=== PATIENT | female | born 1930 | race Caucasian/White ===

== ENCOUNTER 2018-09-19 13:14 | Emergency (ER) | payer MEDICARE, BC ==
[2018-09-19 13:30] VITALS: BP 188/61
--- NOTE | 2018-09-19 14:00 | EDM.PDOC ---
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 She presents the ED for further evaluation for increased falling. Patient uses a walker on a intermittent basis to ambulate. With walking in her residence without a walker she will lose balance and fall backwards. She has fallen backwards 3 times since April after having the cervical fusion. There is no symptoms prior to onset of the fall. Her legs do not give out. She has no chest pain, shortness of breath, vision changes, headache, weakness discrepancy as to the upper and lower extremities, difficult swallowing, or any complaints during this time. Today she fell and has pain along the midline of the cervical neck. Mild in nature with no radiation. Per patient she denies any complaints of strokelike symptoms. She also has some mild pain along the posterior aspect of her head secondary to fall. There was no LOC. Again there is no symptoms prior to the fall. She does not state the fall was precipitated by standing from a seated or laying position. She has no symptoms with falling. She is on no blood thinners. Head Pain Score (Numeric/FACES): 5 - Related Data Allergies Allergy/AdvReac Type Severity Reaction Status Date / Time codeine Allergy Cannot Verified 09/19/18 13:22 Remember Egg Derived Allergy Cannot Verified 09/19/18 13:22 Remember Sulfa (Sulfonamide Allergy Cannot Verified 09/19/18 13:22 Antibiotics) Remember Home Meds: Home Meds Moxifloxacin [Vigamox 0.5% Ophth Soln] 1 drop OP DAILY 10/09/13 [History] Sertraline [Zoloft] 50 mg PO DAILY 10/09/13 [History] Travoprost [Travatan Z 0.004% Ophth Soln] 1 drop EYEBOTH BEDTIME 10/09/13 [ History] Lisinopril 20 mg PO BID 10/10/13 [History] Omeprazole [Prilosec] 20 mg PO DAILY 10/10/13 [History] Bisacodyl [Bisac-Evac] 1 supp RECTAL 2000 PRN 03/02/16 [History] Brimonidine/Timolol [Combigan 0.2%/0.5% Ophth Soln] 1 drop EYEBOTH BID 03/02/16 [History] Polyethylene Glycol 3350 [MiraLAX] 17 gm PO ASDIRECTED 03/02/16 [History] Polyvinyl Alcohol [Artificial Tears] 1 drop EYEBOTH QID 03/02/16 [History] Sennosides/Docusate Sodium [Senna-S Tablet] 1 each PO DAILY PRN 03/02/16 [ History] Vit C/E/Zn/Coppr/Lutein/Zeaxan [Preservision Areds 2 Softgel] 1 cap PO DAILY [History] Aspirin 81 mg PO DAILY 09/19/18 [History] Furosemide [Lasix] 20 mg PO DAILY 09/19/18 [History] Levothyroxine 25 mcg PO DAILY 09/19/18 [History] Past Medical History HEENT History: Reports: Cataract, Glaucoma, Other (See Below) Other HEENT History: keratoenus, complete blindness lt. eye, wear glasses Cardiovascular History: Reports: Hypertension, Other (See Below) Other Cardiovascular History: bradycardia, peripheral edema Respiratory History: Reports: None Gastrointestinal History: Reports: Chronic Constipation, Colon Polyp, GERD, Hemorrhoids, Other (See Below) Other Gastrointestinal History: abdominal pain Genitourinary History: Reports: None Musculoskeletal History: Reports: Back Pain, Chronic, Osteoarthritis, Other ( See Below) Other Musculoskeletal History: spinal stenosis, hip pain, cervical disk herniation Neurological History: Reports: Other (See Below) Other Neuro History: syncope Psychiatric History: Reports: Anxiety, Depression, Other (See Below) Other Psychiatric History: insomnia Endocrine/Metabolic History: Reports: None - Past Surgical History HEENT Surgical History: Reports: Cataract Surgery, Tonsillectomy, Other (See Below) Female Surgical History: Reports: Hysterectomy Other Female Surgeries/Procedures: bladder surgery, rectocele repair Musculoskeletal Surgical History: Reports: Other (See Below) Social & Family History - Tobacco Use Smoking Status *Q: Never Smoker Second Hand Smoke Exposure: No - Caffeine Use Caffeine Use: Reports: Coffee - Recreational Drug Use Recreational Drug Use: No ED ROS GENERAL - Review of Systems Review Of Systems: ROS reveals no pertinent complaints other than HPI. ED EXAM, UPPER BACK/NECK PAIN - Physical Exam Exam: See Below Exam Limited By: No Limitations General Appearance: Alert, WD/WN, No Apparent Distress Eye Exam: Bilateral Eye: EOMI, Nystagmus (No noted), PERRL, Vision Changes ( Chronic vision loss no new changes.) Ears Exam: Normal External Exam, Normal Canal, Hearing Grossly Normal, Normal TMs Nose Exam: Normal Inspection, Normal Mucousa, No Blood Throat/Mouth Exam: Normal Inspection, Normal Oropharynx, Normal Voice, No Airway Compromise Head Exam: Normocephalic, Scalp Tenderness (Posterior). No: Scalp Lacerations, Scalp Swelling, Scalp Abrasions, Scalp Ecchymosis, Scalp Hematoma, Facial Abrasions, Facial Ecchymosis, Facial Lacerations, Facial Swelling, Facial Tenderness, Sinus Tenderness Neck Exam: Normal Alignment, Limited Range of Motion (Secondary to history of cervical spine fusion. Chronic unchanged.), Tenderness (Midline cervical neck pain along C6 and C7.), Tender Midline. No: Paraspinous Muscle Tender, Tender Lateral Nexus Criteria: Posterior, Midline Cervical Tenderness. No: Evidence of Intoxication, Altered Level of Consciousness, Focal Neurological Deficit, Painful Distraction Injuries Cardiovascular/Respiratory: Regular Rate, Rhythm, No M/R/G, Normal Peripheral Pulses, No JVD, Normal Breath Sounds, No Respiratory Distress GI/Abdominal: Normal Bowel Sounds, Soft, Non-Tender, No Organomegaly, No Distention Back Exam: Normal Inspection, Full Range of Motion. No: Paraspinal Tenderness, Vertebral Tenderness Extremities: Normal Inspection, Normal Range of Motion, Non-Tender, No Pedal Edema Neurologic: splunk consultant II-XII nml As Tested, No Motor/Sensory Deficits, Alert, Normal Mood/Affect, Oriented x 3, Other (No facial droop, slurred speech, tongue deviation, weakness discrepancy is to the upper and lower extremities. Finger to nose and rapid alternating movements are intact.) Psychiatric: Normal Affect, Normal Mood Skin Exam: Normal Color, Warm/Dry Course - Vital Signs Last Recorded V/S: Last Vital Signs Temp 97.8 F 09/19/18 13:23 Pulse 62 09/19/18 13:23 Resp 20 09/19/18 13:23 BP 188/61 H 09/19/18 13:23 Pulse Ox 100 09/19/18 13:23 Orthostatic Blood Pressure [ 160/66 Standing] Orthostatic Blood Pressure [ 160/58 Sitting] Orthostatic Blood Pressure [ 160/57 Supine] - Orders/Labs/Meds Orders: Active Orders 24 hr Category Date Time Status EKG Documentation Completion [RC] STAT Care 09/19/18 13:53 Active Orthostatic Vital Signs [RC] ASDIRECTED Care 09/19/18 13:55 Active Labs: Laboratory Tests 09/19/18 09/19/18 09/19/18 Range/Units 14:20 14:20 14:20 WBC 8.93 (3.98-10.04) K/mm3 RBC 3.97 L (3.98-5.22) M/mm3 Hgb 12.6 (11.2-15.7) gm/L Hct 37.1 (34.1-44.9) % MCV 93.5 (79.4-94.8) fl MCH 31.7 (25.6-32.2) pg MCHC 34.0 (32.2-35.5) g/dl RDW Std Deviation 47.5 H (36.4-46.3) fL Plt Count 219 (182-369) K/mm3 MPV 10.7 (9.4-12.3) fl Neutrophils % (Manual) 62 H (40-60) % Band Neutrophils % 2 (0-10) % Lymphocytes % (Manual) 32 (20-40) % Atypical Lymphs % 0 % Monocytes % (Manual) 2 (2-10) % Eosinophils % (Manual) 1 (0.7-5.8) % Basophils % (Manual) 1 (0.1-1.2) Platelet Estimate Adequate RBC Morph Comment Normal PT 10.3 (9.5-12.1) SECONDS INR 0.94 APTT 26 (24-31) SECONDS Sodium 140 (136-145) mEq/L Potassium 4.9 (3.5-5.1) mEq/L Chloride 106 (98-107) mEq/L Carbon Dioxide 27 (21-32) mEq/L Anion Gap 11.9 (5-15) BUN 32 H (7-18) mg/dL Creatinine 1.3 H (0.55-1.02) mg/dL Est Cr Clr Drug Dosing 21.49 mL/min Estimated GFR (MDRD) 39 (>60) mL/min BUN/Creatinine Ratio 24.6 H (14-18) Glucose 105 (83-115) mg/dL Calcium 8.7 (8.5-10.1) mg/dL Total Bilirubin 0.3 (0.2-1.0) mg/dL AST 23 (15-37) U/L ALT 24 (14-59) U/L Alkaline Phosphatase 62 (46-116) U/L Troponin I < 0.017 (0.00-0.056) ng/mL Total Protein 7.0 (6.4-8.2) g/dl Albumin 3.5 (3.4-5.0) g/dl Globulin 3.5 gm/dL Albumin/Globulin Ratio 1.0 (1-2) Urine Color (Yellow) Urine Appearance (Clear) Urine pH (5.0-8.0) Ur Specific [place] (1.005-1.030) Urine Protein (Negative) Urine Glucose (UA) (Negative) Urine Ketones (Negative) Urine Occult Blood (Negative) Urine Nitrite (Negative) Urine Bilirubin (Negative) Urine Urobilinogen (0.2-1.0) Ur Leukocyte Esterase (Negative) Urine RBC (0-5) /hpf Urine WBC (0-5) /hpf Ur Squamous Epith Cells (0-5) /hpf Urine Bacteria (FEW) /hpf Urine Mucus (FEW) /hpf 09/19/18 Range/Units 15:10 WBC (3.98-10.04) K/mm3 RBC (3.98-5.22) M/mm3 Hgb (11.2-15.7) gm/L Hct (34.1-44.9) % MCV (79.4-94.8) fl MCH (25.6-32.2) pg MCHC (32.2-35.5) g/dl RDW Std Deviation (36.4-46.3) fL Plt Count (182-369) K/mm3 MPV (9.4-12.3) fl Neutrophils % (Manual) (40-60) % Band Neutrophils % (0-10) % Lymphocytes % (Manual) (20-40) % Atypical Lymphs % % Monocytes % (Manual) (2-10) % Eosinophils % (Manual) (0.7-5.8) % Basophils % (Manual) (0.1-1.2) Platelet Estimate RBC Morph Comment PT (9.5-12.1) SECONDS INR APTT (24-31) SECONDS Sodium (136-145) mEq/L Potassium (3.5-5.1) mEq/L Chloride (98-107) mEq/L Carbon Dioxide (21-32) mEq/L Anion Gap (5-15) BUN (7-18) mg/dL Creatinine (0.55-1.02) mg/dL Est Cr Clr Drug Dosing mL/min Estimated GFR (MDRD) (>60) mL/min BUN/Creatinine Ratio (14-18) Glucose (83-115) mg/dL Calcium (8.5-10.1) mg/dL Total Bilirubin (0.2-1.0) mg/dL AST (15-37) U/L ALT (14-59) U/L Alkaline Phosphatase (46-116) U/L Troponin I (0.00-0.056) ng/mL Total Protein (6.4-8.2) g/dl Albumin (3.4-5.0) g/dl Globulin gm/dL Albumin/Globulin Ratio (1-2) Urine Color Yellow (Yellow) Urine Appearance Clear (Clear) Urine pH 6.0 (5.0-8.0) Ur Specific [place] 1.015 (1.005-1.030) Urine Protein Negative (Negative) Urine Glucose (UA) Negative (Negative) Urine Ketones Negative (Negative) Urine Occult Blood Trace-lysed H (Negative) Urine Nitrite Negative (Negative) Urine Bilirubin Negative (Negative) Urine Urobilinogen 0.2 (0.2-1.0) Ur Leukocyte Esterase 1+ H (Negative) Urine RBC 0-5 (0-5) /hpf Urine WBC 0-5 (0-5) /hpf Ur Squamous Epith Cells 0-5 (0-5) /hpf Urine Bacteria Few (FEW) /hpf Urine Mucus Few (FEW) /hpf - Re-Assessments/Exams Free Text/Narrative Re-Assessment/Exam: On examination patient complains of posterior head and midline cervical neck pain. She has a history of fusion to the cervical spine. No findings on examination concerning for stroke. Vital signs indicated a slightly elevated blood pressure. States with standing at times she just loses her balance and falls backwards. There is no symptoms prior to falling. Again she offers no additional complaints at this time. Initial labs and studies include: CBC, chem 14, coag studies, troponin, UA, CT cervical spine and head. Orthostatic vitals and EKG will be obtained. EKG: SR [address] changes noted. CT of the head impression: nothing acute is appreciated on noncontrast head CT exam. CT cervical spine without contrast impression: Interval surgery from prior MRI. Stable gin or change from prior MRI. Nothing acute is seen. Labs reviewed: CBC essentially normal. Chemistry panel is essentially normal. Creatinine 1.3 which is close to baseline. Troponin normal. UA negative. All incidences have occurred when the patient is not using her walker. She has no symptoms prior to falling. I've advised the patient that she needs to use the walker at all times. I do that believe this is a balance issue. 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 Patient and daughter agree. I've asked for them to follow up with PCP in the next week for reevaluation. Return precautions were discussed with the patient and his daughter. They had no further questions or concerns. They agreed with plan. Departure - Departure Time of Disposition: 16:10 Disposition: Home, Self-Care 01 Condition: Good Clinical Impression: Balance problem - Discharge Information Instructions: Fall Prevention in the Home, Adult, [id number], How to Use a Walker Referrals: Jeannie Anaya MD [Primary Care Provider] - Forms: ED Department Discharge Additional Instructions: Please follow up with PCP in the next week for reevaluation. Use the walker at all times to ambulate since falls occur when not using it. May apply ice to the affected areas as needed throughout the course of the day to help alleviate some discomfort. Please return back to the ED if you develop any new or worsening symptoms. - My Orders Last 24 Hours: My Active Orders 09/19/18 13:53 EKG Documentation Completion [RC] STAT 09/19/18 13:55 Orthostatic Vital Signs [RC] ASDIRECTED - Assessment/Plan Last 24 Hours: My Active Orders 09/19/18 13:53 EKG Documentation Completion [RC] STAT 09/19/18 13:55 Orthostatic Vital Signs [RC] ASDIRECTED
--- NOTE | 2018-09-19 15:09 | CT ---
Head CT Technique: Multiple axial sections through the brain were obtained. Intravenous contrast was not utilized. Comparison: No prior intracranial imaging is available. Findings: Ventricles along with basal cisterns and sulci over the convexities appear within normal limits for the patient's age. No abnormal parenchymal densities are seen. No evidence of intracranial hemorrhage. No midline shift or mass effect is seen. Bone window settings were reviewed which show no acute calvarial abnormality. Visualized sinuses are clear. Impression: 1. No nothing acute is appreciated on noncontrast head CT exam. Diagnostic code #1
--- NOTE | 2018-09-19 15:09 | CT ---
CT cervical spine Technique: Multiple axial sections were obtained from above C1 inferiorly to the bottom T2. Reconstructed sagittal and coronal images were reviewed. Comparison: Prior MRI cervical spine study of 03/22/18. Findings: Extensive surgery noted at C2 through C7. Posterior laminectomies are seen as well as posterior fixation. Diffuse disc space narrowing is noted throughout these levels. Mild retrolisthesis of C3 is seen in relation to C2 and C4 which is stable from prior MRI. Diffuse posterior and anterior endplate osteophytes are seen. No central canal stenosis is seen. Minimal right-sided neural foraminal stenosis is noted at C5-C6. Other neural foramina are patent. Impression: 1. Interval surgery from prior MRI. 2. Stable degenerative change from prior MRI. 3. Nothing acute is seen. Diagnostic code #2
== END 2018-09-19 16:25 | disposition home or self-care (01) ==
LOC: JD.ED 13:14
DX: R26.89 Other abnormalities of gait and mobility (principal); K21.9 Gastro-esophageal reflux disease without esophagitis; M19.90 Unspecified osteoarthritis, unspecified site; Z98.1 Arthrodesis status; Z79.82 Long term (current) use of aspirin; Z79.899 Other long term (current) drug therapy; Z98.49 Cataract extraction status, unspecified eye; Z98.890 Other specified postprocedural states; Z90.710 Acquired absence of both cervix and uterus; Z88.5 Allergy status to narcotic agent; Z91.012 Allergy to eggs; Z88.2 Allergy status to sulfonamides
CPT/HCPCS: 36415; 70450; 70450-26; 72125; 72125-26; 80053; 81001; 84484; 85007; 85027; 85610; 85730; 93005; 93010; 99283; 99284-25

== ENCOUNTER 2020-03-01 03:09 | Emergency (ER) | payer MEDICARE, BC ==
[2020-03-01] MEDS ORDERED: HYDROmorphone 0.5 MG/0.5 ML Syringe IVPUSH ONE (03:24)
--- NOTE | 2020-03-01 03:24 | EDM.PDOC ---
ED HPI GENERAL MEDICAL PROBLEM - General Chief Complaint: Abdominal Pain Stated Complaint: [facility] Time Seen by Provider: 03/01/20 03:19 Source of Information: Reports: Patient History Limitations: Reports: No Limitations - History of Present Illness INITIAL COMMENTS - FREE TEXT/NARRATIVE: 89-year-old female presents to the ED from [place] where she resides. Ident ified to be running a low-grade fever at 97.7. Complaining of left mid lateral abdominal pain for the last 2 days gradually getting worse. Pain is constant with no colicky component she states normal bowel movements yesterday with no blood. She states she has problems with chronic hemorrhoids but usually no blood with wiping. She has a history of diverticulitis in the past. She has not appreciated any definitive fever or chills. She feels slightly bloated abdominally. Reports nausea associated with the pain. Paramedics did give her 4 mg of Zofran IV. Reports her appetite has remained normal. She had a COVID- 19 screen a week ago and was reportedly negative. She denies cough or sputum production. Pain does not seem to radiate into her back. She denies any genitourinary complaints at this time. Denies past history of kidney stones. Previous abdominal surgery is that of an appendectomy. She reports total abdominal hysterectomy and she believes both ovaries were removed as well. Onset: Gradual Onset Date: 02/28/20 Duration: Day(s):, Getting Worse Location: Reports: Abdomen (Left mid lateral abdomen.) Quality: Reports: Ache Severity: Moderate (6 out of 10) Improves with: Reports: None Worsens with: Reports: Movement Context: Reports: Other (Shayy is occurrence of left mid lateral abdominal pain). Denies: Activity, Exercise, Lifting, Sick Contact, Trauma Associated Symptoms: Reports: No Other Symptoms, Nausea/Vomiting (Nausea). Denies: Confusion, Chest Pain, Cough, cough w sputum, Diaphoresis, Fever/Chills, Headaches, Loss of Appetite, Malaise, Rash, Seizure (.), Shortness of Breath, Syncope, Weakness Treatments [employer]: Reports: Other (see below) Other Treatments [employer]: 4mg zofran by EMS Lower Abdominal Pain Score (Numeric/FACES): 6 - Related Data Allergies Allergy/AdvReac Type Severity Reaction Status Date / Time codeine Allergy Cannot Verified 03/01/20 03:18 Remember Egg Derived Allergy Cannot Verified 03/01/20 03:18 Remember Sulfa (Sulfonamide Allergy Cannot Verified 03/01/20 03:18 Antibiotics) Remember Home Meds: Home Meds Moxifloxacin [Vigamox 0.5% Ophth Soln] 1 drop OP DAILY 10/09/13 [History] Sertraline [Zoloft] 50 mg PO DAILY 10/09/13 [History] Travoprost [Travatan Z 0.004% Ophth Soln] 1 drop EYEBOTH BEDTIME 10/09/13 [History] Lisinopril 20 mg PO BID 10/10/13 [History] Omeprazole [Prilosec] 20 mg PO DAILY 10/10/13 [History] Bisacodyl [Bisac-Evac] 1 supp RECTAL 2000 PRN 03/02/16 [History] Brimonidine/Timolol [Combigan 0.2%/0.5% Ophth Soln] 1 drop EYEBOTH BID 03/02/16 [History] Polyethylene Glycol 3350 [MiraLAX] 17 gm PO ASDIRECTED 03/02/16 [History] Polyvinyl Alcohol [Artificial Tears] 1 drop EYEBOTH QID 03/02/16 [History] Sennosides/Docusate Sodium [Senna-S Tablet] 1 each PO DAILY PRN 03/02/16 [History] Vit C/E/Zn/Coppr/Lutein/Zeaxan [Preservision Areds 2 Softgel] 1 cap PO DAILY 03/02/16 [History] Aspirin 81 mg PO DAILY 09/19/18 [History] Furosemide [Lasix] 40 mg PO DAILY 09/19/18 [History] Levothyroxine 25 mcg PO DAILY 09/19/18 [History] Past Medical History HEENT History: Reports: Cataract, Glaucoma, Other (See Below) Other HEENT History: keratoenus, complete blindness lt. eye, wear glasses Cardiovascular History: Reports: Hypertension, Other (See Below) Other Cardiovascular History: bradycardia, peripheral edema Respiratory History: Reports: None Gastrointestinal History: Reports: Chronic Constipation, Colon Polyp, GERD, Hemorrhoids, Other (See Below) Other Gastrointestinal History: abdominal pain Genitourinary History: Reports: None Musculoskeletal History: Reports: Back Pain, Chronic, Osteoarthritis, Other (See Below) Other Musculoskeletal History: spinal stenosis, hip pain, cervical disk herniation Neurological History: Reports: Other (See Below) Other Neuro History: syncope Psychiatric History: Reports: Anxiety, Depression, Other (See Below) Other Psychiatric History: insomnia Endocrine/Metabolic History: Reports: None - Past Surgical History HEENT Surgical History: Reports: Cataract Surgery, Tonsillectomy, Other (See Below) GI Surgical History: Reports: Appendectomy Female Surgical History: Reports: Hysterectomy Other Female Surgeries/Procedures: bladder surgery, rectocele repair Musculoskeletal Surgical History: Reports: Other (See Below) (Cervical spine fusion) Social & Family History - Caffeine Use Caffeine Use: Reports: Coffee - Living Situation & Occupation Living situation: Reports: Occupation: Retired (Currently residing at [facility].) ED ROS GENERAL - Review of Systems Review Of Systems: See Below Constitutional: Denies: Fever, Chills, Malaise, Weakness, Fatigue, Decreased Appetite, Weight Loss HEENT: Reports: Glasses Respiratory: Denies: Shortness of Breath, Wheezing, Pleuritic Chest Pain, Cough, Sputum Cardiovascular: Reports: Blood Pressure Problem, Dyspnea on Exertion (Also her upper left leg is always more swollen than the right.), Edema. Denies: Chest Pain, Claudication, Lightheadedness, Orthopnea Endocrine: Reports: Fatigue GI/Abdominal: Reports: Abdominal Pain (See history of present illness.), Constipation (Tree of constipation.), Other (Struve chronic hemorrhoids externally) : Reports: Frequency, Incontinence (Urge and stress components) Musculoskeletal: Reports: Back Pain, Joint Pain (Knees hips lower back shoulders and neck at times) Skin: Reports: No Symptoms Neurological: Reports: No Symptoms Psychiatric: Reports: No Symptoms Hematologic/Lymphatic: Reports: No Symptoms Immunologic: Reports: No Symptoms ED EXAM, GI/ABD - Physical Exam Exam: See Below Exam Limited By: No Limitations General Appearance: Alert, WD/WN, No Apparent Distress, Other (Temperature was 36.4 pulse 73 and sinus respiratory 16 with O2 sats of 96% room air BP 179/67.) Eyes: Bilateral: Normal Appearance (She has had bilateral cataract extractions and intraocular lens implants.) Throat/Mouth: Normal Inspection, Normal Lips, Normal Oropharynx. No: Normal Teeth Head: Atraumatic, Normocephalic Neck: Normal Inspection, Limited Range of Motion, Tender Lateral (Tender bilateral cervical spine she states no worse than normal.). No: Lymphadenopathy (L), Lymphadenopathy (R) Respiratory/Chest: No Respiratory Distress, Lungs Clear, Normal Breath Sounds, No Accessory Muscle Use Cardiovascular: Normal Peripheral Pulses, Regular Rate, Rhythm, No Edema, No Gallop, No Murmur, No Rub GI/Abdominal Exam: Normal Bowel Sounds, Soft, No Organomegaly, Distended (Abdomen is very mildly distended and diffusely tympany to percussion.), Tender (And is well localized to mid left lateral abdomen in the distribution of the descending colon. No peritoneal signs.). No: Guarding, Rigid, Rebound Back Exam: Decreased Range of Motion, Other. No: CVA Tenderness (L), CVA Tenderness (R) (Moderate kyphosis thoracic spine.) Extremities: Normal Inspection, Normal Range of Motion, Non-Tender, No Pedal Edema, Other (Tenderness both knees with evidence of osteoarthritic change.) Neurological: Alert, Oriented, CN II-XII Intact, Normal Cognition Psychiatric: Normal Affect, Normal Mood Skin Exam: Warm, Dry, Intact, Normal Color, No Rash Course - Vital Signs Last Recorded V/S: Last Vital Signs Temp 36.4 C 03/01/20 03:12 Pulse 70 03/01/20 06:17 Resp 16 03/01/20 04:47 BP 152/66 H 03/01/20 04:13 Pulse Ox 99 03/01/20 06:17 - Orders/Labs/Meds Orders: Active Orders 24 hr Category Date Time Status Abdomen 1V Flat [CR] Stat Exams 03/01/20 03:26 Taken Abdomen Pelvis wo Cont [CT] Stat Exams 03/01/20 04:13 Taken Dextrose 5%-0.9% NaCl [Dextrose 5%-Normal Saline] 1,000 Med 03/01/20 03:30 Active ml IV ASDIRECTED Medication Orders Dextrose/Sodium Chloride (Dextrose 5%-Normal Saline) 1,000 mls @ 125 mls/hr IV ASDIRECTED DALE Last Admin: 03/01/20 03:32 Dose: 125 mls/hr Documented by: OZZY Labs: Laboratory Tests 03/01/20 03/01/20 03/01/20 Range/Units 03:46 03:46 03:46 WBC 6.86 (3.98-10.04) K/mm3 RBC 3.78 L (3.98-5.22) M/mm3 Hgb 12.0 (11.2-15.7) gm/dl Hct 36.6 (34.1-44.9) % MCV 96.8 H D (79.4-94.8) fl MCH 31.7 (25.6-32.2) pg MCHC 32.8 (32.2-35.5) g/dl RDW Std Deviation 45.2 (36.4-46.3) fL Plt Count 234 (182-369) K/mm3 MPV 10.2 (9.4-12.3) fl Neut % (Auto) 51.0 (34.0-71.1) % Lymph % (Auto) 33.1 (19.3-51.7) % [place] % (Auto) 12.0 (4.7-12.5) % Eos % (Auto) 2.8 (0.7-5.8) Baso % (Auto) 1.0 (0.1-1.2) % Neut # (Auto) 3.50 (1.56-6.13) K/mm3 Lymph # (Auto) 2.27 (1.18-3.74) K/mm3 [place] # (Auto) 0.82 H (0.24-0.36) K/mm3 Eos # (Auto) 0.19 (0.04-0.36) K/mm3 Baso # (Auto) 0.07 (0.01-0.08) K/mm3 Sodium 138 (136-145) mEq/L Potassium 4.9 (3.5-5.1) mEq/L Chloride 105 (98-107) mEq/L Carbon Dioxide 21 (21-32) mEq/L Anion Gap 16.9 H (5-15) BUN 56 H (7-18) mg/dL Creatinine 1.5 H (0.55-1.02) mg/dL Est Cr Clr Drug Dosing 18.26 mL/min Estimated GFR (MDRD) 33 (>60) mL/min BUN/Creatinine Ratio 37.3 H (14-18) Glucose 115 (83-115) mg/dL Calcium 9.0 (8.5-10.1) mg/dL Magnesium 1.9 (1.8-2.4) mg/dl Total Bilirubin 0.3 (0.2-1.0) mg/dL AST 12 L (15-37) U/L ALT 26 (14-59) U/L Alkaline Phosphatase 50 (46-116) U/L Troponin I < 0.017 (0.00-0.056) ng/mL C-Reactive Protein 0.3 (<1.0) mg/dL NT-Pro-B Natriuret Pep 1164 H (0-450) pg/mL Total Protein 6.9 (6.4-8.2) g/dl Albumin 3.6 (3.4-5.0) g/dl Globulin 3.3 gm/dL Albumin/Globulin Ratio 1.1 (1-2) Lipase 258 (73-393) U/L Urine Color (Yellow) Urine Appearance (Clear) Urine pH (5.0-8.0) Ur Specific [place] (1.005-1.030) Urine Protein (Negative) Urine Glucose (UA) (Negative) Urine Ketones (Negative) Urine Occult Blood (Negative) Urine Nitrite (Negative) Urine Bilirubin (Negative) Urine Urobilinogen (0.2-1.0) Ur Leukocyte Esterase (Negative) U Hyaline Cast (Auto) (0-5) /lpf Urine RBC (0-5) /hpf Urine WBC (0-5) /hpf Ur Squamous Epith Cells (0-5) /hpf Amorphous Sediment (NOT SEEN) /hpf Urine Bacteria (FEW) /hpf Urine Mucus (FEW) /hpf 03/01/20 Range/Units 04:00 WBC (3.98-10.04) K/mm3 RBC (3.98-5.22) M/mm3 Hgb (11.2-15.7) gm/dl Hct (34.1-44.9) % MCV (79.4-94.8) fl MCH (25.6-32.2) pg MCHC (32.2-35.5) g/dl RDW Std Deviation (36.4-46.3) fL Plt Count (182-369) K/mm3 MPV (9.4-12.3) fl Neut % (Auto) (34.0-71.1) % Lymph % (Auto) (19.3-51.7) % [place] % (Auto) (4.7-12.5) % Eos % (Auto) (0.7-5.8) Baso % (Auto) (0.1-1.2) % Neut # (Auto) (1.56-6.13) K/mm3 Lymph # (Auto) (1.18-3.74) K/mm3 [place] # (Auto) (0.24-0.36) K/mm3 Eos # (Auto) (0.04-0.36) K/mm3 Baso # (Auto) (0.01-0.08) K/mm3 Sodium (136-145) mEq/L Potassium (3.5-5.1) mEq/L Chloride (98-107) mEq/L Carbon Dioxide (21-32) mEq/L Anion Gap (5-15) BUN (7-18) mg/dL Creatinine (0.55-1.02) mg/dL Est Cr Clr Drug Dosing mL/min Estimated GFR (MDRD) (>60) mL/min BUN/Creatinine Ratio (14-18) Glucose (83-115) mg/dL Calcium (8.5-10.1) mg/dL Magnesium (1.8-2.4) mg/dl Total Bilirubin (0.2-1.0) mg/dL AST (15-37) U/L ALT (14-59) U/L Alkaline Phosphatase (46-116) U/L Troponin I (0.00-0.056) ng/mL C-Reactive Protein (<1.0) mg/dL NT-Pro-B Natriuret Pep (0-450) pg/mL Total Protein (6.4-8.2) g/dl Albumin (3.4-5.0) g/dl Globulin gm/dL Albumin/Globulin Ratio (1-2) Lipase (73-393) U/L Urine Color Yellow (Yellow) Urine Appearance Clear (Clear) Urine pH 5.0 (5.0-8.0) Ur Specific [place] 1.015 (1.005-1.030) Urine Protein Negative (Negative) Urine Glucose (UA) Negative (Negative) Urine Ketones Negative (Negative) Urine Occult Blood 2+ H (Negative) Urine Nitrite Negative (Negative) Urine Bilirubin Negative (Negative) Urine Urobilinogen 0.2 (0.2-1.0) Ur Leukocyte Esterase Negative (Negative) U Hyaline Cast (Auto) 0-5 (0-5) /lpf Urine RBC 5-10 H (0-5) /hpf Urine WBC 0-5 (0-5) /hpf Ur Squamous Epith Cells 5-10 H (0-5) /hpf Amorphous Sediment Moderate H (NOT SEEN) /hpf Urine Bacteria Few (FEW) /hpf Urine Mucus Moderate H (FEW) /hpf Meds: Medications Generic Name Dose Route Start Last Admin Trade Name Freq PRN Reason Stop Dose Admin Dextrose/Sodium Chloride 1,000 mls @ 125 mls/hr 03/01/20 03:30 03/01/20 03:32 Dextrose 5%-Normal Saline IV 125 mls/hr ASDIRECTED DALE Administration Discontinued Medications Generic Name Dose Route Start Last Admin Trade Name Freq PRN Reason Stop Dose Admin Hydromorphone HCl 0.25 mg 03/01/20 03:24 03/01/20 03:32 Dilaudid IVPUSH 03/01/20 03:25 0.25 mg ONETIME ONE Administration Magnesium Citrate 150 ml 03/01/20 06:20 03/01/20 06:24 Citrate Of Magnesia PO 03/01/20 06:21 150 ml ONETIME ONE Administration - Radiology Interpretation Free Text/Narrative:: 89-year-old female presents to the hospital per [facility] from [facility] where she resides. Chief complaint is that of nausea associated with left lower quadrant abdominal pain for the last 2 days. The pain seems to be gradually getting worse. She reports it is constant does not radiate into her back or flank. Previous abdominal surgery is that of an appendectomy and total abdominal hysterectomy and BSO. Exam reveals bowel sounds active in all 4 quadrants. She has a history of constipation but reports good bowel movement yesterday without blood pain localized to the mid left descending colon clinically. No guarding or peritoneal signs evident. Paramedics had given her Zofran 4 mg IV in route to the hospital. I will give her 0.25 mg of Dilaudid IV for pain relief. Routine labs to be performed including a catheterized urine specimen. 1 view abdomen will be done at this time. Consideration for CT of the abdomen to rule out diverticulitis. - Re-Assessments/Exams Free Text/Narrative Re-Assessment/Exam: 03/01/20 04:14 KUB reveals sparsity of gas within the colon. There is mildly increased stool in the left hemicolon. No signs of bowel obstruction identified. We will proceed with CT of the abdomen and pelvis with oral contrast only. 03/01/20 05:11 Labs reveal a normal white count at 6.86. The differential on the auto differential is 51% neutrophils gains to an infective process. Hemoglobin is 12.0 with hematocrit of 36.6. MCV is elevated at 96.8. Sodium 138 with a potassium of 4.9. Chloride 105 with a bicarb of 21. Anion gap is mildly elevated at 16.9. BUN is markedly elevated at 56 with a creatinine of 1.5. GFR is 33 i.e. stage III renal insufficiency. BUN/creatinine ratio is markedly elevated at 37.3 suggesting possibility of an upper GI bleed. Glucose is 115 with a calcium of 9.0 magnesium is 1.9 liver function is normal troponin I is less than 0.017. C-reactive protein is 0.3 BNP is mildly elevated at 1164 total protein 6.9 with an albumin fraction of 3.6. Lipase is 258. Urinalysis shows 2+ occult blood 5-10 RBCs per high-power field 5-10 squamous epithelial cells with no white cells. Moderate amorphous segment few bacteria and moderate urine mucus. This raises the possibility of an occult kidney stone causing current left sided abdominal pain. 03/01/20 05:13 Looking back at old records when she was seen through the ED last which was in September 2018 she had a GFR of 39 and her BUN at that time was elevated at 32 with a creatinine of 1.3. 03/01/20 05:53: Patient has been able to sleep in the department. CT of the abdomen has been completed with oral contrast only. It reveals multiple intrahepatic cysts with the largest cyst involving the left lobe of the liver laterally and measures 4.2 cm in size. Gallbladder appears normal with no calcified gallstones or ductal dilatation. Pancreas is normal with no ductal dilatation. Spleen is normal adrenal glands are normal kidneys and ureters appear to be normal with no obvious hydronephrosis. Stomach and bowel revealed diffuse sigmoid diverticulosis but no signs of diverticulitis. There is no evidence of appendicitis. Intraperitoneal space is unremarkable with no free air or fluid collection. Vasculature he remarked reveals no abdominal aortic aneurysm but scattered atherosclerotic change throughout. No enlarged lymph nodes. Urinary bladder appears unremarkable. Bones and joints reveal advanced degenerative arthritic change throughout the lumbar spine. On my assessment there is increased stool throughout the descending and sigmoid colon most likely contributing to the patient's current pain syndrome. With the amount of red blood cells seen on the urinalysis I cannot completely rule out a kidney stone which could be hiding behind the contrast filled descending colon. However I do not appreciate any significant hydroureter on the left side. At this time I am going to adopt a [id number] approach. The oral contrast will likely induce bowel cleanse. I am going to suggest she start MiraLAX powder 17 g once daily to provide more regular bowel movements. Plan will be to discharge her home later this morning at a more suitable hour. Departure - Departure Time of Disposition: 08:15 Disposition: Home, Self-Care 01 Condition: Fair Clinical Impression: Abdominal pain in female patient, Constipation by delayed colonic transit - Discharge Information *PRESCRIPTION DRUG MONITORING PROGRAM REVIEWED*: Not Applicable *COPY OF PRESCRIPTION DRUG MONITORING REPORT IN PATIENT STEVE: Not Applicable Instructions: Chronic Constipation, Abdominal Pain, Adult, [id number] Referrals: Jeannie Ceja MD [Primary Care Provider] - Forms: ED Department Discharge Additional Instructions: Evaluation in the emergency room tonight in regards to persistent left sided abdominal pain for the last 2 days associated with development of intermittent nausea due to the pain. No associated fever detected lab work reveals a normal white count with no signs of a bacterial infection. Concerns identified on examination for possible diverticulitis of the left colon. CT scan of the abdomen has been performed and reveals multiple large cysts within the liver which appear to be benign. The left colon does exhibit diverticulosis but no active infection to suggest diverticulitis. There is increased stool throughout the left hemicolon particular the descending colon and sigmoid colon where your pain is. The oral contrast that you drank in preparation for the CT scan will usually induce 1 or 2 bowel movements within the next 6 to 8 hours. I would suggest taking 5 ounces of magnesium citrate this morning as well which will be sent home with you from the ED. This is to be mixed with 5 ounces of juice of choice and taken only once. This will ensure adequate bowel cleanse and should provide relief of your left-sided abdominal pain. I also would suggest starting MiraLAX powder 17 g or 1 scoop every day to provide regular bowel movements and prevent constipation from reoccurring. If pain is not improved after bowel cleanse please consult your personal care physician or return to the ED. Sepsis Event Note (ED) - Evaluation Sepsis Screening Result: No Definite Risk - Focused Exam Vital Signs: Vital Signs Temp Pulse Resp BP Pulse Ox 03/01/20 06:17 70 99 03/01/20 04:47 62 16 100 03/01/20 04:13 69 16 152/66 H 94 L 03/01/20 03:12 36.4 C 73 16 179/67 H 96 - My Orders Last 24 Hours: My Active Orders 03/01/20 03:26 Abdomen 1V Flat [CR] Stat 03/01/20 03:30 Dextrose 5%-0.9% NaCl [Dextrose 5%-Normal Saline] 1,000 ml IV ASDIRECTED 03/01/20 04:13 Abdomen Pelvis wo Cont [CT] Stat - Assessment/Plan Last 24 Hours: My Active Orders 03/01/20 03:26 Abdomen 1V Flat [CR] Stat 03/01/20 03:30 Dextrose 5%-0.9% NaCl [Dextrose 5%-Normal Saline] 1,000 ml IV ASDIRECTED 03/01/20 04:13 Abdomen Pelvis wo Cont [CT] Stat
[2020-03-01] MEDS ORDERED: Dextrose 5%-0.9% NaCl 1,000 ML IV SCH (03:30)
[2020-03-01] MEDS ORDERED: Magnesium Citrate Solution 296 ML Bottle PO ONE (06:20)
[2020-03-01 11:21] VITALS: BP 153/60; PULSE 76
== END 2020-03-01 10:00 | disposition home or self-care (01) ==
LOC: JD.ED 03:09
DX: K59.01 Slow transit constipation (principal); I10 Essential (primary) hypertension; F41.9 Anxiety disorder, unspecified; F32.9 Major depressive disorder, single episode, unspecified; K21.9 Gastro-esophageal reflux disease without esophagitis; M19.90 Unspecified osteoarthritis, unspecified site; Z88.5 Allergy status to narcotic agent; Z91.012 Allergy to eggs; Z88.2 Allergy status to sulfonamides; Z79.899 Other long term (current) drug therapy; Z79.82 Long term (current) use of aspirin
CPT/HCPCS: 36415; 74018; 74176; 80053; 81001; 83690; 83735; 83880; 84484; 85025; 86140; 96374; 99285; A9270; J1170; J7042; 99283